=== PATIENT | male | born 1970 | race Caucasian/White ===

== ENCOUNTER 2023-03-24 07:37 | Day surgery (SDC) | payer OTHER ==
[~2023-03-24] VITALS: Ht 160 cm; Wt 99.8 kg
[~2023-03-24 07:37] MED LIST: ADVIL200 MG PO
[2023-03-24] MEDS ORDERED: PERCOCET 5/325M1 TAB PO (08:51)
[2023-03-24 10:50] VITALS: BP 138/95
== END 2023-03-24 11:06 | disposition home or self-care (01) | DRG 352 ==
LOC: ORM 07:37
PROVIDERS: ATTEND Surgery
PROC: 0YU50JZ Supplement Right Inguinal Region with Synthetic Substitute, Open Approach (ICD-10-PCS; principal; 2023-03-24)
DX: K40.90 Unilateral inguinal hernia, without obstruction or gangrene, not specified as recurrent (principal)
CPT/HCPCS: C9290; J0131; J0690